=== PATIENT | male | born 1985 | race Caucasian/White ===

== ENCOUNTER 2020-07-13 18:44 | Emergency (ER) | payer OTHER, SELFPAY ==
--- NOTE | ~2020-07-13 | XR_ITS ---
EXAMINATION: XR hand LT min 3V DATE: 07/13/2020 20:02 INDICATION: Left hand injury. TECHNIQUE: 3 views of left hand were obtained. COMPARISON: None. FINDINGS: There is a comminuted fracture of neck of fifth metacarpal. The main distal fracture fragme nt demonstrates 4 mm palmar displacement, 25 degrees palmar angulation, and 3 mm radial displacement. There is likely an old healed fracture of neck of fourth metacarpal. There is mild osteoarthritis of first carpometacarpal joint. IMPRESSION: 1. Comminuted fracture of neck of fifth metacarpal. Reviewed, dictated and finalized at location A.
[2020-07-13 18:54] VITALS: BP 122/77; PULSE 99; RESP 18; TEMP 36.8; O2SAT 100
--- NOTE | 2020-07-13 20:17 | ED.UPPEXIN ---
HPI - Extremity Injury (Upper) General Chief Complaint: Extremity Injury, Upper Stated Complaint: Extremity Injury, Upper Time Seen by Provider: 07/13/20 19:50 Source: patient and RN notes reviewed Mode of arrival: ambulatory Limitations: no limitations History of Present Illness HPI narrative: 34 year old male who presents to [facility] with complaints of injury to his left hand which happened on Monday at his house.. He states that he got his hand smashed between brick wall and bobcat voices [place] 12/25 described as burning and throbbing. Patient has swelling over lateral aspect of his left hand over 5th metacarpal area with some redness to the dorsal aspect of his left hand from exhaust with no open skin areas noted. Patient states that his neighbor gave him an Xanax and he was able to sleep after taking the medication, has not taken any OTC medication for discomfort. Patient has strong left radial pulse and nail beds have brisk capillary refill to his left fingers, able to move fingers but with some increase pain. MD complaint: injury to: left and hand Onset (ago): day(s) Handedness: right Place: outdoors Related Data Allergies Allergy/AdvReac Type Severity Reaction Status Date / Time No Known Allergies Allergy Verified 07/13/20 19:20 Review of Systems Review of Systems: Narrative: CONSTITUTIONAL: Denies fever, chills, or sweats. EYES: Denies visual changes, redness, or discharge. ENT: Denies rhinorrhea, congestion, sore throat, or otalgia. CARDIOVASCULAR: Denies chest pain, palpitations, or edema. RESPIRATORY: Denies cough or dyspnea. GASTROINTESTINAL: Denies abdominal pain, nausea, vomiting, or diarrhea. GENITOURINARY: Denies dysuria or hematuria. SKIN: Denies rash or itching. MUSCULOSKELETAL: Denies back pain, positive for left hand swelling over fifth metacarpal joint area with pain, bruising to palm of hand, mild redness to top of hand. NEUROLOGIC: Denies headache, numbness, or weakness. PSYCHIATRIC: Denies anxiety or depression. All systems reviewed & are unremarkable except as noted in HPI and below PMFSH Past Medical History Medical History (Updated 07/16/20 @ 09:26 by Carolann Lares NP) No significant past medical history Surgical History Surgical History (Updated 07/13/20 @ 20:59 by Carolann Lares NP) No history of previous surgery Family History Family History (Updated 07/13/20 @ 20:59 by Carolann Lares NP) Other No significant family history Social History Social History (Updated 07/13/20 @ 20:45 by Carolann Lares NP) Smoking status: Current every day smoker Substance use type: marijuana Gender identity (if verbalized by the patient): Male Exam Narrative: Exam Narrative: GENERAL: Well-appearing, well-nourished, and in acute distress related to pain in left hand HEAD: Normocephalic, atraumatic. EYES: PERRLA and EOMI. ENT: Nares clear, no rhinorrhea or epistaxis. Mucous membranes moist. NECK: Supple.no lymphadenopathy CHEST: Clear to auscultation. No respiratory distress.SAO2 100% on room air. HEART: Regular rate and rhythm. No murmur heard. Normal peripheral pulses. ABDOMEN: Soft, nontender, nondistended, normal active bowel sounds. EXTREMITIES: Normal range of motion. No edema with exception to his left hand which has swelling over lateral aspect of his left hand over 5th metacarpal with some mild redness to dorsal left hand with no open skin areas noted, some bruising to the littlejohn aspect of his left hand noted. Patient has strong left radial pulse with no tingling or numbness to left hand or fingers stated, brisk capillary refill to left finger nails, hand warm and pink. SKIN: Warm, dry, no rash. NEURO: No focal deficits. Alert and oriented x3. Course Vital Signs Vital signs: Vital Signs Temperature 36.8 C 07/13/20 18:54 Pulse Rate 99 07/13/20 18:54 Respiratory Rate 18 07/13/20 18:54 Blood Pressure 122/77 07/13/20 18:54 Pulse Oximetry 100 07/13/20 18:
--- NOTE | 2020-07-13 21:06 | PC.NURSE ---
During pt care observed pt registration papers not on chart. Pt access was already gone. Noted registration process explained to pt and pt stated he would come back to sign anything that needed signing. Mahad
== END 2020-07-13 20:51 | disposition home or self-care (01) ==
PROVIDERS: Emergency Provider Registered Nurse
DX: S62.337A Displaced fracture of neck of fifth metacarpal bone, left hand, initial encounter for closed fracture (principal); X58.XXXA Exposure to other specified factors, initial encounter; F17.200 Nicotine dependence, unspecified, uncomplicated
CPT/HCPCS: 29125; 73130; 99214; A4565; G0463